=== PATIENT | female | born 1950 | race Caucasian/White ===

== ENCOUNTER 2020-10-30 08:22 | Inpatient (IN) | payer OTHER, MEDICARE ==
[2020-10-22 12:57] VITALS: BMI 27.3
[2020-10-30] MEDS ORDERED: BUPIVACAINE HCL 50 ML ONE (09:49)
[2020-10-30] MEDS ORDERED: BUPIVACAINE LIPOSOME/PF (EXPAREL) 266 MG/20 ML VIAL ONE (09:49)
[2020-10-30] MEDS ORDERED: MIDAZOLAM HCL 2 MG/2 ML SINGLE DOSE VIAL ONE (09:49)
[2020-10-30] MEDS ORDERED: SODIUM CHLORIDE 0.9% P/F 10 ML VIAL IJ ONE (09:49)
[2020-10-30] MEDS ORDERED: CEFAZOLIN 2 GM in DEXTROSE 5%-WATER - 100 ML IVPB ONE (10:04)
[2020-10-30] MEDS ORDERED: TRANEXAMIC ACID 1000 MG/10 ML VIAL IVPUSH ONE (10:04)
[2020-10-30] MEDS ORDERED: MORPHINE SULFATE 10 MG/1 ML *VIAL ONE ×2 (10:14→11:49)
[2020-10-30] MEDS ORDERED: ROPIVACAINE HCL 0.5% 30ML VIAL ONE (10:17)
[2020-10-30] MEDS ORDERED: methylPREDNISolone ACET (DEPO) 40 MG/1 ML VIAL ONE ×2 (10:17→11:46)
[2020-10-30] MEDS ORDERED: KETOROLAC TROMETHAMINE 60 MG/2 ML VIAL ONE (10:17)
[2020-10-30] MEDS ORDERED: DEXAMETHASONE SOD PHOSPHATE 4 MG/1 ML VIAL ONE ×2 (10:47→12:28)
[2020-10-30] MEDS ORDERED: ONDANSETRON 4 MG/2 ML VIAL ONE ×2 (10:47→12:28)
[2020-10-30] MEDS ORDERED: ceFAZolin SODIUM 1 GM VIAL ONE (10:47)
[2020-10-30] MEDS ORDERED: PROPOFOL 20 ML ONE ×2 (11:02→11:45)
[2020-10-30] MEDS ORDERED: BUPIVACAINE HCL ONE (11:48)
[2020-10-30] MEDS ORDERED: oxyCODONE HCL 5 MG TABLET PO PRN (11:49)
[2020-10-30] MEDS ORDERED: ACETAMINOPHEN 1000 MG/100 ML VIAL (NON FORMULARY) IVPB ONE (11:49)
[2020-10-30] MEDS ORDERED: LACTATED RINGERS SOLUTION 1,000 ML IV SCH ×2 (12:00→13:30)
[2020-10-30] MEDS ORDERED: ACETAMINOPHEN 325 MG TABLET (FP) PO SCH (12:00)
[2020-10-30] MEDS ORDERED: MAG HYDROX/AL HYDROX/SIMETH 30 ML UNIT-DOSE CUP PO PRN (13:25)
[2020-10-30] MEDS ORDERED: ONDANSETRON 4 MG/2 ML VIAL IVPUSH PRN (13:25)
[2020-10-30] MEDS ORDERED: MAGNESIUM HYDROX 2400MG/30ML ORAL SUSPENSION 30 ML CUP PO PRN (13:25)
[2020-10-30] MEDS ORDERED: ACETAMINOPHEN INJECTION 100 ML IVPB ONE (13:30)
[2020-10-30] MEDS: oxyCODONE HCL 5 MG TABLET PO PRN ×2 (16:56→20:50)
[2020-10-30] MEDS: IBUPROFEN 600 MG TABLET (FP) PO SCH ×2 (16:57→23:46)
[2020-10-30] MEDS: CEFAZOLIN 1 GM/D5W 1 GM/50 ML BAG IVPB SCH (18:44)
[2020-10-30] MEDS ORDERED: CEFAZOLIN 1 GM/D5W 1 GM/50 ML BAG IVPB SCH (19:00)
[2020-10-30] MEDS: ACETAMINOPHEN 500 MG TABLET (FP) PO SCH (21:43)
[2020-10-30] MEDS: ASPIRIN 81 MG CHEWABLE TABLETS PO SCH (21:44)
[2020-10-30] MEDS: SENNOSIDES/DOCUSATE COMBO (SENNA PLUS) TABLET (UD) PO SCH (21:44)
[2020-10-30] MEDS ORDERED: ATORVASTATIN CA 20 MG TABLET (FP) PO SCH (22:00)
[2020-10-30] MEDS ORDERED: DULoxetine HCL 30 MG CAPSULE.DR PO SCH (22:00)
[2020-10-31] MEDS: CEFAZOLIN 1 GM/D5W 1 GM/50 ML BAG IVPB SCH (02:26)
[2020-10-31] MEDS: ACETAMINOPHEN 500 MG TABLET (FP) PO SCH (06:02)
[2020-10-31] MEDS ORDERED: CEFAZOLIN 1 GM/D5W 1 GM/50 ML BAG IVPB ONE (07:30)
[2020-10-31] MEDS: IBUPROFEN 600 MG TABLET (FP) PO SCH (08:00)
[2020-10-31 08:03] LABS: CALCIUM 8.6 mg/dl (8.5-10); CREATININE 0.9 mg/dl (0.55-1.3)
[2020-10-31 08:13] LABS: HEMATOCRIT 36.8 % (32.4-45.2); HEMOGLOBIN 12.3 GM/dl (10.7-15.3); MCH 30.1 pg (25.7-33.7); MCHC 33.6 g/dl (32.0-36.0); MEAN CELL VOLUME 89.7 fl (80-96); MEAN PLT VOLUME 9.5 fl (7.5-11.1); PLATELET COUNT 258 10^3/uL (134-434); RDW 13.5 % (11.6-15.6); WHITE BLOOD COUNT 9.5 K/mm3 (4.0-10.8)
[2020-10-31 09:52] VITALS: BP 127/55; PULSE 85; TEMP 98.5
[2020-10-31] MEDS ORDERED: CELECOXIB 200 MG CAPSULE PO SCH (10:00)
[2020-10-31] MEDS ORDERED: PATIENT'S OWN MEDICATION (NON-FORMULARY) (Omeprazole [Omeprazole] 20 MG Tablet.Dr) PO SCH (10:00)
[2020-10-31] MEDS ORDERED: PANTOPRAZOLE 20 MG TABLET PO SCH (10:00)
[2020-10-31] MEDS: ASPIRIN 81 MG CHEWABLE TABLETS PO SCH (10:14)
[2020-10-31] MEDS: oxyCODONE HCL 5 MG TABLET PO PRN (10:15)
[2020-10-31] MEDS: SENNOSIDES/DOCUSATE COMBO (SENNA PLUS) TABLET (UD) PO SCH (10:15)
== END 2020-10-31 12:20 | disposition home or self-care (01) | DRG 470 ==
LOC: FASU 08:22 → FM/S 10:05 → FASU 21:10 → FM/S 21:14
PROVIDERS: ADMIT Orthopaedic Surgery; ATTEND Orthopaedic Surgery
PROC: 0SRC0J9 Replacement of Right Knee Joint with Synthetic Substitute, Cemented, Open Approach (ICD-10-PCS; principal; 2020-10-30 11:10)
DX: M17.11 Unilateral primary osteoarthritis, right knee (principal); K21.9 Gastro-esophageal reflux disease without esophagitis; E78.00 Pure hypercholesterolemia, unspecified; F41.9 Anxiety disorder, unspecified; M17.0 Bilateral primary osteoarthritis of knee
CPT/HCPCS: 36415; 73560-TC-LT-FY; 80048; 85027; 88305-TC; 88311-TC; 94760; 97010-GP; 97116-GP; 97161-GP; J0131